=== PATIENT | female | born 1980 | race Caucasian/White ===

== ENCOUNTER → 2021-07-31 | Day surgery (SDC) | payer BC ==
[~2021-07-31] MED LIST: BASAGLAR K100 UNIT/1 SQ; BENAZEPRIL HCL20 MG PO; CETIRIZINE HCL10 MG PO; CRESTOR20 MG PO; DEMEROL 50 MG PO; DULCOLAX STOOL100 MG PO; IRON PO; NAPROXEN SODIU550 MG PO; NORVASC5 MG PO; NOVOLOG 10100 UNITS/ SQ; OMEPRAZOLE20 M1 PO; PHENERGAN 25 MG25 M1 PO; SINGULAIR10 MG PO; VITAMIN D21250 MCG PO; VITAMIN D350 MC3 PO; ZINC50 M3 PO; [UNRECOGNIZED DRUG - OTHER] PO
== END | disposition home or self-care (01) ==
LOC: OR 07:30
DX: N84.0 Polyp of corpus uteri (principal); N92.0 Excessive and frequent menstruation with regular cycle; Z88.5 Allergy status to narcotic agent; Z20.822 Contact with and (suspected) exposure to COVID-19; I10 Essential (primary) hypertension; E78.5 Hyperlipidemia, unspecified; K21.9 Gastro-esophageal reflux disease without esophagitis; E10.9 Type 1 diabetes mellitus without complications; Z79.4 Long term (current) use of insulin; Z98.51 Tubal ligation status
CPT/HCPCS: 82962; J0690; J1170; J1885; J2250; J2405; J2704; J3010; J7030